=== PATIENT | female | born 1975 | race Caucasian/White ===

== ENCOUNTER 2018-10-01 22:54 | Emergency (ER) | payer BC ==
--- NOTE | 2018-10-02 01:12 | ER Document Report ---
Addendum entered and electronically signed by SEAN DA SILVA FNP 10/02/18 01:51: History of Present Illness Stated Complaint: BACK PAIN History of Present Illness: The patient denies any fall at the time of my assessment. She states that she she was only lying on the floor to sleep. Original Note: HPI - HPI Time Seen by Provider: 10/02/18 00:23 Pain Level: 4 Context: Patient is a 42-year-old female who presents emergency department with a chief complaint of low back pain. Her pain is chronic, but she states that her pain started 3 days ago. She states that her pain is so severe that she can barely walk. Her pain starts in the lower back and is a shooting pain down both her legs. She has history of spinal fusions in the past. She is visiting here from [place] and she has been sleeping on the floor because her daughter does not have a bed for her to sleep in. Her daughter has offered her the couch, but she refuses to sleep on the couch. The patient states, "I have taken everything [id number] to help with my pain, but nothing helps." Patient also states that she normally receives morphine or Dilaudid and steroids when she goes to the emergency department. She denies any IV drug abuse. She does state that she has some incontinence, but has had it before this incident. She reports tobacco abuse, and admits to marijuana use. She denies alcohol use. - CONSTITUTIONAL Constitutional: DENIES: Fever, Chills - NEURO Neurology: DENIES: Headache - CARDIOVASCULAR Cardiovascular: DENIES: Chest pain - RESPIRATORY Respiratory: DENIES: Trouble Breathing - GASTROINTESTINAL Gastrointestinal: DENIES: Abdominal Pain - URINARY Urinary: DENIES: Urgency, Frequency - REPRODUCTIVE Reproductive: DENIES: : - MUSCULOSKELETAL Musculoskeletal: REPORTS: Extremity pain, Back Pain - Mid lower thigh radiates down both legs - DERM Skin Color: Normal Skin Problems: None Past Medical History - Social History Smoking Status: Current Every Day Smoker Frequency of alcohol use: None Drug Abuse: Marijuana Family History: Reviewed & Not Pertinent Patient has suicidal ideation: No Patient has homicidal ideation: No Renal/ Medical History: Denies: Hx Peritoneal Dialysis Past Surgical History: Reports: Hx Orthopedic Surgery - spinal surgery with rods Vertical Provider Document - CONSTITUTIONAL Exam Limitations: No Limitations General Appearance: No Apparent Distress - INFECTION CONTROL TRAVEL OUTSIDE OF THE [place] IN LAST 30 DAYS: No - HEENT HEENT: Atraumatic, Normocephalic - NECK Neck: Normal Inspection - RESPIRATORY Respiratory: No Respiratory Distress - CARDIOVASCULAR Cardiovascular: Regular Rate, Regular Rhythm - BACK Back: Normal Inspection Notes: Tenderness to mid low back - MUSCULOSKELETAL/EXTREMETIES Musculoskeletal/Extremeties: Tender - Low mid back, No Edema. negative: Eccymosis - NEURO Level of Consciousness: Awake, Alert, Appropriate Course - Re-evaluation Re-evalutation: 10/02/18 01:12 Differential diagnosis for back pain includes muscle spasm, muscle strain, slipped disc cauda equina syndrome, vertebral fracture, vertebral tumor, epidural abscess, pyelonephritis, or AAA. Based on history and exam, the most likely etiology of the patient's back pain is chronic in nature. Emergent MRI is not indicated at this time because the patient does not have new weakness, or cauda equina syndrome. Patient does not have bladder or bowel dysfunction that is new. Patient does not have history of IV drug use, therefore, I do not suspect an epidural abscess. Patient does not have recent weight loss or night sweats, and does not have a known history of cancer. Since the patient has chronic pain, I looked up the [place] drug reporting system and found her record from [place]. She was given a 5- day supply of [place] on September 08. I told the patient that I can give her a do se of [place] here in the emergency department, but she will not go home with pain medication. She then stated, "that stuff does not work for me." I asked her than what she normally gets in the emergency department and she states she gets Dilaudid or morphine and a steroid shot. I will give her 4 mg of morphine and 10 mg of Decadron to help with her symptoms. I told her that she will not go home with narcotic pain medication. She is in agreement with the plan. Verbal discharge instructions were given to the patient. They verbalized understanding. They are stable for discharge. - Vital Signs Vital signs: Temp Pulse Resp BP Pulse Ox 98.9 F 92 18 118/87 H 96 10/01/18 23:25 10/01/18 23:25 10/01/18 23:25 10/01/18 23:25 10/01/18 23:25 Discharge - Discharge Clinical Impression: Chronic low back pain with bilateral sciatica Qualifiers: Back pain laterality: bilateral Qualified Code(s): M54.42 - Lumbago with sciatica, left side Condition: Stable Disposition: HOME, SELF-CARE Instructions: Ice Packs ([facility]), Low Back Pain ([facility]), Pain Medication Injection ([facility]), Warm Packs ([facility]) Additional Instructions: You were seen today in the emergency department for back pain. Your back pain is chronic. Please make sure you do not sleep on the floor anymore, as this is not good for your back. You were given a dose of pain medicine and steroids here in the emergency department. Please follow-up with your primary care in regards to this visit. If you lose function in your legs, have worsening symptoms, or have any symptoms that are worrisome to you, please return to the emergency department.
[2018-10-02] MEDS ORDERED: MORPHINE SULFATE 10 MG/ML INJ IV ONE (01:26)
[2018-10-02] MEDS ORDERED: DEXAMETHASONE SOD PHOS INJ 10 MG/1 ML VIAL IM ONE ×2 (01:26→01:32)
[2018-10-02 01:50] VITALS: BP 112/85
== END 2018-10-02 01:50 | disposition home or self-care (01) ==
LOC: ER 22:54
DX: M54.42 Lumbago with sciatica, left side (principal); M54.9 Dorsalgia, unspecified; F17.200 Nicotine dependence, unspecified, uncomplicated
CPT/HCPCS: 99283; 96372; 96374; J2270; J1100